=== PATIENT | female | born 1985 | race American Indian/Alaskan Native ===

== ENCOUNTER 2019-07-19 16:54 | Emergency (ER) | payer MEDICAID ==
[2019-07-19 17:34] VITALS: BP 125/54
--- NOTE | 2019-07-19 17:44 | Emergency Department Report ---
Blank Doc - Documentation Documentation: 33-year-old female that presents with left ankle pain. This initial assessment/diagnostic orders/clinical plan/treatment(s) is/are subject to change based on patient's health status, clinical progression and re- assessment by fellow clinical providers in the ED. Further treatment and workup at subsequent clinical providers discretion. Patient/guardians urged not to elope from the ED as their condition may be serious if not clinically assessed and managed. Initial orders include: 1- Patient sent to [facility] for further evaluation and treatment 2- xrays
--- NOTE | 2019-07-19 18:36 | XRay Report ---
LEFT FOOT 3 VIEWS 1744 INDICATION: PAIN/SWELLING R/T INJURY COMPARISON: None available. FINDINGS: Slight hallux valgus is noted. No fractures or dislocations are seen. LEFT ANKLE 3 VIEWS 1800 INDICATION: PAIN/SWELLING R/T INJURY COMPARISON: None available. FINDINGS: Prominent lateral soft tissue swelling is seen. No fractures or dislocations are seen. Signer Name: Antonio Suggs MD Signed: 07/19/2019 6:32 PM Workstation Name: [id number]
[2019-07-19] MEDS ORDERED: traMADol 50 MG TAB PO ONE (19:38)
--- NOTE | 2019-07-19 19:43 | Emergency Department Report ---
ED Lower Extremity HPI - General Chief Complaint: Extremity Injury, Lower Stated Complaint: POSS SPRAINED (L) ANKLE Time Seen by Provider: 07/19/19 17:43 Source: patient Mode of arrival: Wheelchair Limitations: No Limitations - History of Present Illness Initial Comments: This is a 33-year-old -[place] female who presents to the emergency room with left ankle swelling and pain. Patient states she had a ground-level fall today around 1300. She reports swelling and pain to the lateral side of left ankle. Reports she is able to partially bear weight with worsening pain. Patient states when she feels she heard a crackle and wanted to make sure she didn't break her ankle. She denies loss of consciousness, hitting her head, nausea, numbness or tingling, weakness, or bruising. MD Complaint: ankle injury (left) Onset/Timin -: hour(s) Injury: Ankle: Left Type of Injury: unknown Place: street/outdoors Severity: severe Severity scale (0 -10): 10 Improves With: nothing Worsens With: weight bearing, movement Context: fall Associated Symptoms: snap/pop sensation, swelling, able to partially bear weight. denies: numbness, tingling - Related Data Previous Rx's Medication Instructions Recorded Last Taken Type Ibuprofen [Motrin 800 MG tab] 800 mg PO Q8HR PRN #20 tablet 07/19/19 Unknown Rx Allergies Allergy/AdvReac Type Severity Reaction Status Date / Time No Known Allergies Allergy Unverified 07/19/19 17:04 ED Review of Systems ROS: Stated complaint: POSS SPRAINED (L) ANKLE Other details as noted in HPI Constitutional: denies: chills, fever Respiratory: denies: cough, shortness of breath, wheezing Cardiovascular: denies: chest pain, palpitations Gastrointestinal: denies: abdominal pain, nausea, diarrhea Musculoskeletal: joint swelling (left ankle), arthralgia (left ankle). denies: back pain Skin: denies: rash, lesions Neurological: denies: headache, weakness, paresthesias Psychiatric: denies: anxiety, depression ED Past Medical Hx - Past Medical History Previous Medical History?: No - Surgical History Past Surgical History?: No - Social History Smoking Status: Current Every Day Smoker Substance Use Type: None - Medications Home Medications: Home Medications Medication Instructions Recorded Confirmed Last Taken Type Ibuprofen [Motrin 800 MG tab] 800 mg PO Q8HR PRN #20 tablet 07/19/19 Unknown Rx ED Physical Exam - General Limitations: No Limitations General appearance: alert, in no apparent distress - Respiratory Respiratory exam: Present: normal lung sounds bilaterally. Absent: respiratory distress - Cardiovascular Cardiovascular Exam: Present: regular rate, normal rhythm. Absent: systolic murmur, diastolic murmur, rubs, gallop - GI/Abdominal GI/Abdominal exam: Present: soft, normal bowel sounds - Expanded Lower Extremity Exam Left Upper Leg exam: Present: normal inspection, full ROM Knee exam: Present: normal inspection, full ROM Lower Leg exam: Present: normal inspection, full ROM Ankle exam: Present: tenderness (lateral malleolus), swelling. Absent: full ROM (pain with FROM), abrasion, laceration, ecchymosis, deformity, crepidus, dislocation, erythema, anterior draw sign Foot/Toe exam: Present: normal inspection, full ROM Neuro vascular tendon exam: Present: no vascular compromise Gait: Positive: observed and limited by pain - Neurological Exam Neurological exam: Present: alert, oriented X3, normal gait - Psychiatric Psychiatric exam: Present: normal affect, normal mood - Skin Skin exam: Present: warm, dry, intact, normal color. Absent: rash ED Course Vital Signs 07/19/19 17:32 Temperature 98.4 F Pulse Rate 70 Respiratory 18 Rate Blood Pressure 125/54 O2 Sat by Pulse 100 Oximetry ED Lower Extremity MDM - Radiology Data Radiology results: report reviewed LEFT FOOT 3 VIEWS 1744 INDICATION: PAIN/SWELLING R/T INJURY COMPARISON: None available. FINDINGS: Slight hallux valgus is noted. No fractures or dislocations are seen. LEFT ANKLE 3 VIEWS 1800 INDICATION: PAIN/SWELLING R/T INJURY COMPARISON: None available. FINDINGS: Prominent lateral soft tissue swelling is seen. No fractures or dislocations are seen. - Medical Decision Making This is a 33 y.o. male that presents with swelling and pain of lateral ankle. Patient is stable and was examined by me. X-ray of the left ankle obtained. Prominent lateral soft tissue swelling is seen. No fractures or dislocations are seen. Given tramadol once in ER. Stirrup splint applied. Crutches given with instructions. RICE therapy instructions given. Follow up with PCP. Start ibuprofen. No further questions noted by the patient. Discharged home in stable condition. Follow up with PCP in 24-72 hours. Critical care attestation.: If time is entered above; I have spent that time in minutes in the direct care of this critically ill patient, excluding procedure time. ED Disposition Clinical Impression: Acute left ankle pain, Sprain and strain of ankle Left ankle injury Qualifiers: Encounter type: initial encounter Qualified Code(s): S99.912A - Unspecified injury of left ankle, initial encounter Disposition: TO HOME OR SELFCARE Is pt being admited?: No Condition: Stable Instructions: Arthralgia (ED), Ankle Sprain (ED) Additional Instructions: Rest Use ice or heat on affected area for 20 minutes and off for 2 hours. Take pain medication as needed for pain. Follow up with Primary Care Provider in 2-3 days. Prescriptions: Ibuprofen [Motrin 800 MG tab] 800 mg PO Q8HR PRN #20 tablet PRN Reason: Pain , Severe (7-10) Referrals: [facility] [Outside] - 3-5 Days [facility] [Outside] - 3-5 Days [facility] [Outside] - 3-5 Days Forms: Work/School Release Form(ED) Time of Disposition: 19:58
== END 2019-07-19 20:30 | disposition home or self-care (01) ==
LOC: ED 16:54
DX: S96.912A Strain of unspecified muscle and tendon at ankle and foot level, left foot, initial encounter (principal); F17.200 Nicotine dependence, unspecified, uncomplicated; Z79.1 Long term (current) use of non-steroidal anti-inflammatories (NSAID); W18.30XA Fall on same level, unspecified, initial encounter; Y93.89 Activity, other specified; Y92.89 Other specified places as the place of occurrence of the external cause; Y99.8 Other external cause status